=== PATIENT | female | born 2000 | race Caucasian/White ===

== ENCOUNTER 2021-04-11 08:35 | Inpatient (IN) | payer BC ==
[2021-04-11] MEDS ORDERED: Iopamidol-370 76% 500 ML 1 ML ONE (08:44)
[2021-04-11] MEDS ORDERED: Dexamethasone 10 MG/ML VIAL ONE (08:58)
[2021-04-11 09:24] LABS: Hemoglobin 12.8 g/dL (12.0-16.0); Mean Corpuscular HGB CONC 32.8 g/dL (32.0-36.0); Mean Corpuscular Volume 94.5 fL (78.0-98.0); Platelet Count 213 thou/uL (130-400); Red Blood Cell (RBC) Count 4.14 mill/uL (4.20-5.40); White Blood Cell (WBC) Count 3.5 thou/uL (4.8-10.8)
[2021-04-11] MEDS ORDERED: Ondansetron PF 4 MG/2 ML Vial ONE (09:30)
[2021-04-11 09:43] LABS: ALT (SGPT) 100 U/L (8-55); AST (SGOT) 85 U/L (5-34); Albumin 3.5 g/dL (3.5-5.0); Alkaline Phosphatase 152 U/L (40-110); Anion Gap 14 mmol/L (10-20); BUN (Urea Nitrogen) 8 mg/dL (7.0-18.7); Bilirubin, Total 2.4 mg/dL (0.2-1.2); Calc. Creatinine Clearance 0 mL/min (70-130); Calcium 8.2 mg/dL (7.8-10.44); Carbon Dioxide 21 mmol/L (22-29); Chloride 101 mmol/L (98-107); Globulin 3.7 g/dL (2.4-3.5); Glucose 128 mg/dL (70-105); Potassium 3.4 mmol/L (3.5-5.1); Protein, Total 7.2 g/dL (6.0-8.3); Sodium 133 mmol/L (136-145)
[2021-04-11 09:48] LABS: Band 10 % (5-11); Lymphocytes 35 % (21-51); MDiff Complete? YES; Monocytes 1 % (0-10); Neutrophil 35 % (42-75); RBC Morphology Normal; Reactive Lymphocytes 19 % (0-10)
[2021-04-11 10:23] LABS: BHCG - Serum Negative (NEGATIVE); Pregs Control Background? CLEAR/WHITE (CLR/WHITE); Pregs Control Bar Appear? YES (CONTROL BAR)
[2021-04-11] MEDS ORDERED: Acetaminophen 325 MG TAB PO PRN (11:41)
[2021-04-11] MEDS ORDERED: Senokot S 8.6-50 MG TAB PO PRN (11:41)
[2021-04-11] MEDS ORDERED: Calcium Carbonate 500 MG ChewTAB PO PRN (11:41)
[2021-04-11] MEDS ORDERED: Ondansetron ODT 4 MG TAB PO PRN (11:41)
[2021-04-11 13:06] LABS: SARS-CoV-2 NAA Rapid Test DETECTED (NotDetected)
[2021-04-11] MEDS ORDERED: Enoxaparin Sodium 40 MG/0.4 ML SYRINGE SC SCH (13:30)
[2021-04-11] MEDS ORDERED: Albuterol 200 PUFF (6.7GM INHALER) INH SCH ×3 (13:45→19:00)
[2021-04-11] MEDS ORDERED: Pharmacy to Dose REMDESIVIR IVPB PRN (13:49)
[2021-04-11] MEDS ORDERED: REMDESIVIR 200 MG in Sodium Chloride 0.9% 250 ML 210 ML IV SCH (14:00)
[2021-04-11] MEDS: Albuterol 200 PUFF (6.7GM INHALER) INH SCH (21:11)
[2021-04-11] MEDS: Enoxaparin Sodium 40 MG/0.4 ML SYRINGE SC SCH (21:16)
[2021-04-11] MEDS: Dexamethasone 4 mg/ml Vial SLOW IVP SCH (21:16)
[2021-04-12] MEDS: Albuterol 200 PUFF (6.7GM INHALER) INH SCH ×4 (01:39→17:31)
[2021-04-12 06:58] LABS: Hemoglobin 12.1 g/dL (12.0-16.0); Mean Corpuscular HGB CONC 33.1 g/dL (32.0-36.0); Mean Corpuscular Hemoglobin 31.2 pg (27.0-31.0); Mean Corpuscular Volume 94.2 fL (78.0-98.0); Mean Platelet Volume 6.9 fL (7.4-10.4); Platelet Count 206 thou/uL (130-400); RBC Distribution Width 11.8 % (11.5-14.5); Red Blood Cell (RBC) Count 3.88 mill/uL (4.20-5.40); White Blood Cell (WBC) Count 1.7 thou/uL (4.8-10.8)
[2021-04-12 07:14] LABS: ALT (SGPT) 96 U/L (8-55); AST (SGOT) 85 U/L (5-34); Albumin 3.2 g/dL (3.5-5.0); Alkaline Phosphatase 146 U/L (40-110); Anion Gap 13 mmol/L (10-20); BUN (Urea Nitrogen) 9 mg/dL (7.0-18.7); Bilirubin, Direct 1.2 mg/dL (0.1-0.3); Bilirubin, Total 1.6 mg/dL (0.2-1.2); Calc. Creatinine Clearance 214 mL/min (70-130); Calcium 8.2 mg/dL (7.8-10.44); Carbon Dioxide 21 mmol/L (22-29); Chloride 108 mmol/L (98-107); Glucose 126 mg/dL (70-105); Potassium 3.8 mmol/L (3.5-5.1); Protein, Total 6.8 g/dL (6.0-8.3); Sodium 138 mmol/L (136-145)
[2021-04-12 07:29] LABS: HBCM Index 0.11 S/CO (0-0.79); HBSAg Index 0.23 S/CO (0-0.99); Hep A IgM AB Non-Reactive (NonReactive); Hep A IgM S/CO 0.22 S/CO (0-0.79); Hep B Surf Ag Non-Reactive S/CO (NonReactive); Hep C IgG Ab Non-Reactive (NonReactive); Hep C Index 0.29 S/CO (0-0.79); Hepatitis B Core IgM Abs Non-Reactive (NonReactive)
[2021-04-12] MEDS: REMDESIVIR 100 MG in Sodium Chloride 0.9% 250 ML 230 ML IV SCH (07:52)
[2021-04-12] MEDS: Cholecalciferol 1,000 UNITS (25 MCG) TAB PO SCH (07:53)
[2021-04-12] MEDS: Enoxaparin Sodium 40 MG/0.4 ML SYRINGE SC SCH ×2 (07:53→20:10)
[2021-04-12] MEDS: Dexamethasone 4 mg/ml Vial SLOW IVP SCH ×2 (07:53→20:08)
[2021-04-12] MEDS: Zinc Sulfate 220 MG CAP PO SCH ×2 (07:53→08:25)
[2021-04-12] MEDS: Ascorbic Acid 500 mg Chewable Tablet PO SCH (07:53)
[2021-04-12 08:32] LABS: Band 14 % (5-11); Lymphocytes 50 % (21-51); MDiff Complete? YES; Monocytes 2 % (0-10); Neutrophil 32 % (42-75); Platelet Morphology Comment Appears Adequate; RBC Morphology Normal; Reactive Lymphocytes 2 % (0-10)
[2021-04-12] MEDS ORDERED: Enoxaparin Sodium 40 MG/0.4 ML SYRINGE SC SCH (09:00)
[2021-04-12] MEDS ORDERED: BARICITINIB 2 MG TAB PO SCH (09:00)
[2021-04-12] MEDS: Benzonatate 100 MG CAP PO PRN (20:10)
[2021-04-13] MEDS: Albuterol 200 PUFF (6.7GM INHALER) INH SCH ×4 (01:08→18:01)
[2021-04-13 07:18] LABS: Hemoglobin 12.2 g/dL (12.0-16.0); Mean Corpuscular HGB CONC 31.7 g/dL (32.0-36.0); Mean Corpuscular Hemoglobin 30.1 pg (27.0-31.0); Platelet Count 239 thou/uL (130-400); RBC Distribution Width 11.9 % (11.5-14.5); Red Blood Cell (RBC) Count 4.05 mill/uL (4.20-5.40); White Blood Cell (WBC) Count 2.8 thou/uL (4.8-10.8)
[2021-04-13 07:29] LABS: ALT (SGPT) 113 U/L (8-55); AST (SGOT) 107 U/L (5-34); Albumin 3.1 g/dL (3.5-5.0); Alkaline Phosphatase 137 U/L (40-110); Anion Gap 12 mmol/L (10-20); BUN (Urea Nitrogen) 12 mg/dL (7.0-18.7); Bilirubin, Direct 1.2 mg/dL (0.1-0.3); Bilirubin, Total 1.6 mg/dL (0.2-1.2); Calc. Creatinine Clearance 202 mL/min (70-130); Calcium 8.3 mg/dL (7.8-10.44); Carbon Dioxide 25 mmol/L (22-29); Chloride 107 mmol/L (98-107); Glucose 144 mg/dL (70-105); Potassium 4.1 mmol/L (3.5-5.1); Protein, Total 6.6 g/dL (6.0-8.3); Sodium 140 mmol/L (136-145)
[2021-04-13] MEDS: Dexamethasone 4 mg/ml Vial SLOW IVP SCH ×2 (07:47→20:17)
[2021-04-13] MEDS: Enoxaparin Sodium 40 MG/0.4 ML SYRINGE SC SCH ×2 (07:47→20:19)
[2021-04-13] MEDS: Ascorbic Acid 500 mg Chewable Tablet PO SCH (07:48)
[2021-04-13] MEDS: Benzonatate 100 MG CAP PO PRN ×3 (07:48→20:17)
[2021-04-13] MEDS: Cholecalciferol 1,000 UNITS (25 MCG) TAB PO SCH (07:48)
[2021-04-13] MEDS: Zinc Sulfate 220 MG CAP PO SCH (07:48)
[2021-04-13] MEDS: REMDESIVIR 100 MG in Sodium Chloride 0.9% 250 ML 230 ML IV SCH (09:44)
[2021-04-13 10:46] LABS: Band 12 % (5-11); Lymphocytes 27 % (21-51); MDiff Complete? YES; Monocytes 4 % (0-10); Neutrophil 53 % (42-75); RBC Morphology Normal; Reactive Lymphocytes 4 % (0-10)
[2021-04-13] MEDS: Guaifenesin DM 100-10/5 ML UDCUP PO PRN (13:19)
[2021-04-14] MEDS: Albuterol 200 PUFF (6.7GM INHALER) INH SCH ×4 (01:14→18:48)
[2021-04-14] MEDS: Guaifenesin DM 100-10/5 ML UDCUP PO PRN ×2 (03:11→08:48)
[2021-04-14 07:58] LABS: Hemoglobin 13.4 g/dL (12.0-16.0); Mean Corpuscular HGB CONC 32.2 g/dL (32.0-36.0); Mean Corpuscular Hemoglobin 30.4 pg (27.0-31.0); Mean Corpuscular Volume 94.3 fL (78.0-98.0); Mean Platelet Volume 6.9 fL (7.4-10.4); Platelet Count 257 thou/uL (130-400); RBC Distribution Width 11.9 % (11.5-14.5); Red Blood Cell (RBC) Count 4.41 mill/uL (4.20-5.40); White Blood Cell (WBC) Count 2.9 thou/uL (4.8-10.8)
[2021-04-14 07:59] LABS: ALT (SGPT) 134 U/L (8-55); AST (SGOT) 111 U/L (5-34); Albumin 3.3 g/dL (3.5-5.0); Alkaline Phosphatase 143 U/L (40-110); Anion Gap 12 mmol/L (10-20); BUN (Urea Nitrogen) 14 mg/dL (7.0-18.7); Bilirubin, Total 1.5 mg/dL (0.2-1.2); Calc. Creatinine Clearance 214 mL/min (70-130); Calcium 8.2 mg/dL (7.8-10.44); Carbon Dioxide 25 mmol/L (22-29); Chloride 108 mmol/L (98-107); Glucose 182 mg/dL (70-105); Protein, Total 6.9 g/dL (6.0-8.3); Sodium 141 mmol/L (136-145)
[2021-04-14 08:25] LABS: Lymphocytes 18 % (21-51); MDiff Complete? YES; Monocytes 2 % (0-10); Neutrophil 75 % (42-75); Platelet Morphology Comment Appears Adequate; Reactive Lymphocytes 5 % (0-10)
[2021-04-14] MEDS: REMDESIVIR 100 MG in Sodium Chloride 0.9% 250 ML 230 ML IV SCH (08:47)
[2021-04-14] MEDS: Dexamethasone 4 mg/ml Vial SLOW IVP SCH ×2 (08:48→19:26)
[2021-04-14] MEDS: Enoxaparin Sodium 40 MG/0.4 ML SYRINGE SC SCH ×2 (08:48→19:26)
[2021-04-14] MEDS: Cholecalciferol 1,000 UNITS (25 MCG) TAB PO SCH (08:48)
[2021-04-14] MEDS: Ascorbic Acid 500 mg Chewable Tablet PO SCH (08:49)
[2021-04-14] MEDS: Zinc Sulfate 220 MG CAP PO SCH (08:49)
[2021-04-14] MEDS: Benzonatate 100 MG CAP PO PRN ×2 (08:50→20:00)
[2021-04-14] MEDS: Mometasone 200 MCG/Formoterol 5 MCG 120 PUFF INHALER INH SCH ×2 (13:04→18:49)
[2021-04-14] MEDS: cefTRIAXone\\ROCEPHIN 1 GM in Sodium Chloride 0.9% 100 ML IVPB SCH (18:48)
[2021-04-14] MEDS: Azithromycin 500 MG in Sodium Chloride 0.9% 250 ML 250 ML IVPB SCH (20:19)
[2021-04-15] MEDS: Albuterol 200 PUFF (6.7GM INHALER) INH SCH (01:39)
[2021-04-15 03:42] LABS: #Lymphocytes 0.9 thou/uL (1.20-3.40); #Monocytes 0.3 thou/uL (0.11-0.59); #Neutrophils 5.7 thou/uL (1.40-6.50); %Basophils 0.2 % (0.0-1.0); %Eosinophils 0.1 % (0.0-10.0); %Lymphocytes 12.6 % (21.0-51.0); %Monocytes 3.8 % (0.0-10.0); %Neutrophils 83.3 % (42.0-75.0); Hemoglobin 12.8 g/dL (12.0-16.0); Mean Corpuscular HGB CONC 33.2 g/dL (32.0-36.0); Mean Corpuscular Hemoglobin 31.1 pg (27.0-31.0); Mean Corpuscular Volume 93.7 fL (78.0-98.0); Mean Platelet Volume 6.6 fL (7.4-10.4); Platelet Count 280 thou/uL (130-400); RBC Distribution Width 11.9 % (11.5-14.5); Red Blood Cell (RBC) Count 4.13 mill/uL (4.20-5.40); White Blood Cell (WBC) Count 6.8 thou/uL (4.8-10.8)
[2021-04-15 04:03] LABS: ALT (SGPT) 173 U/L (8-55); AST (SGOT) 117 U/L (5-34); Albumin 3.2 g/dL (3.5-5.0); Alkaline Phosphatase 128 U/L (40-110); Anion Gap 11 mmol/L (10-20); BUN (Urea Nitrogen) 11 mg/dL (7.0-18.7); Bilirubin, Total 1.3 mg/dL (0.2-1.2); Calc. Creatinine Clearance 218 mL/min (70-130); Calcium 8.3 mg/dL (7.8-10.44); Carbon Dioxide 25 mmol/L (22-29); Chloride 107 mmol/L (98-107); Glucose 188 mg/dL (70-105); Potassium 3.8 mmol/L (3.5-5.1); Protein, Total 6.5 g/dL (6.0-8.3); Sodium 139 mmol/L (136-145)
[2021-04-15 05:39] VITALS: BMI 36.0
[2021-04-15] MEDS: Cholecalciferol 1,000 UNITS (25 MCG) TAB PO SCH (08:14)
[2021-04-15] MEDS: Zinc Sulfate 220 MG CAP PO SCH (08:14)
[2021-04-15] MEDS: Ascorbic Acid 500 mg Chewable Tablet PO SCH (08:14)
[2021-04-15] MEDS: Enoxaparin Sodium 40 MG/0.4 ML SYRINGE SC SCH ×2 (08:15→20:10)
[2021-04-15] MEDS: Dexamethasone 4 mg/ml Vial SLOW IVP SCH ×2 (08:15→20:10)
[2021-04-15] MEDS: REMDESIVIR 100 MG in Sodium Chloride 0.9% 250 ML 230 ML IV SCH (08:18)
[2021-04-15] MEDS: Azithromycin 500 MG in Sodium Chloride 0.9% 250 ML 250 ML IVPB SCH (17:49)
[2021-04-15] MEDS: cefTRIAXone\\ROCEPHIN 1 GM in Sodium Chloride 0.9% 100 ML IVPB SCH (18:23)
[2021-04-16 03:56] LABS: #Lymphocytes 0.9 thou/uL (1.20-3.40); #Monocytes 0.2 thou/uL (0.11-0.59); #Neutrophils 3.2 thou/uL (1.40-6.50); %Basophils 0.2 % (0.0-1.0); %Eosinophils 0.3 % (0.0-10.0); %Lymphocytes 20.2 % (21.0-51.0); %Monocytes 4.5 % (0.0-10.0); %Neutrophils 74.8 % (42.0-75.0); Hemoglobin 12.6 g/dL (12.0-16.0); Mean Corpuscular HGB CONC 32.8 g/dL (32.0-36.0); Mean Corpuscular Hemoglobin 30.8 pg (27.0-31.0); Mean Corpuscular Volume 93.9 fL (78.0-98.0); Mean Platelet Volume 6.9 fL (7.4-10.4); Platelet Count 239 thou/uL (130-400); RBC Distribution Width 11.8 % (11.5-14.5); Red Blood Cell (RBC) Count 4.07 mill/uL (4.20-5.40); White Blood Cell (WBC) Count 4.2 thou/uL (4.8-10.8)
[2021-04-16 04:17] LABS: Anion Gap 9 mmol/L (10-20); BUN (Urea Nitrogen) 13 mg/dL (7.0-18.7); Calc. Creatinine Clearance 219 mL/min (70-130); Calcium 8.4 mg/dL (7.8-10.44); Carbon Dioxide 26 mmol/L (22-29); Chloride 106 mmol/L (98-107); Glucose 194 mg/dL (70-105); Sodium 137 mmol/L (136-145)
[2021-04-16] MEDS: Benzonatate 100 MG CAP PO PRN ×2 (06:09→20:41)
[2021-04-16] MEDS: Dexamethasone 4 mg/ml Vial SLOW IVP SCH ×2 (07:39→20:41)
[2021-04-16] MEDS: Ascorbic Acid 500 mg Chewable Tablet PO SCH (07:39)
[2021-04-16] MEDS: Enoxaparin Sodium 40 MG/0.4 ML SYRINGE SC SCH ×2 (07:39→20:43)
[2021-04-16] MEDS: Cholecalciferol 1,000 UNITS (25 MCG) TAB PO SCH (07:39)
[2021-04-16] MEDS: Zinc Sulfate 220 MG CAP PO SCH (07:40)
[2021-04-16] MEDS: Mometasone 200 MCG/Formoterol 5 MCG 120 PUFF INHALER INH SCH ×3 (10:47→19:30)
[2021-04-16] MEDS: Albuterol 200 PUFF (6.7GM INHALER) INH SCH ×4 (10:47→19:00)
[2021-04-16] MEDS: cefTRIAXone\\ROCEPHIN 1 GM in Sodium Chloride 0.9% 100 ML IVPB SCH (17:25)
[2021-04-16] MEDS: Azithromycin 500 MG in Sodium Chloride 0.9% 250 ML 250 ML IVPB SCH (17:45)
[2021-04-17] MEDS: Albuterol 200 PUFF (6.7GM INHALER) INH SCH ×5 (01:11→18:25)
[2021-04-17] MEDS: Mometasone 200 MCG/Formoterol 5 MCG 120 PUFF INHALER INH SCH ×2 (06:11→18:24)
[2021-04-17 06:34] LABS: ALT (SGPT) 86 U/L (8-55); AST (SGOT) 25 U/L (5-34); Albumin 3.2 g/dL (3.5-5.0); Alkaline Phosphatase 98 U/L (40-110); Anion Gap 12 mmol/L (10-20); BUN (Urea Nitrogen) 13 mg/dL (7.0-18.7); Bilirubin, Total 0.8 mg/dL (0.2-1.2); Calc. Creatinine Clearance 197 mL/min (70-130); Calcium 8.4 mg/dL (7.8-10.44); Carbon Dioxide 23 mmol/L (22-29); Chloride 108 mmol/L (98-107); Globulin 3.2 g/dL (2.4-3.5); Glucose 186 mg/dL (70-105); Protein, Total 6.4 g/dL (6.0-8.3); Sodium 139 mmol/L (136-145)
[2021-04-17] MEDS: Cholecalciferol 1,000 UNITS (25 MCG) TAB PO SCH (08:38)
[2021-04-17] MEDS: Ascorbic Acid 500 mg Chewable Tablet PO SCH (08:38)
[2021-04-17] MEDS: Zinc Sulfate 220 MG CAP PO SCH (08:38)
[2021-04-17] MEDS: Enoxaparin Sodium 40 MG/0.4 ML SYRINGE SC SCH ×2 (08:39→21:03)
[2021-04-17] MEDS: Dexamethasone 4 mg/ml Vial SLOW IVP SCH ×2 (08:39→21:02)
[2021-04-17] MEDS: Benzonatate 100 MG CAP PO PRN (21:03)
[2021-04-18] MEDS: Albuterol 200 PUFF (6.7GM INHALER) INH SCH ×4 (01:30→18:42)
[2021-04-18] MEDS: Mometasone 200 MCG/Formoterol 5 MCG 120 PUFF INHALER INH SCH ×2 (06:19→18:42)
[2021-04-18] MEDS: Cholecalciferol 1,000 UNITS (25 MCG) TAB PO SCH (09:06)
[2021-04-18] MEDS: Zinc Sulfate 220 MG CAP PO SCH (09:06)
[2021-04-18] MEDS: Ascorbic Acid 500 mg Chewable Tablet PO SCH (09:07)
[2021-04-18] MEDS: Dexamethasone 4 mg/ml Vial SLOW IVP SCH ×2 (09:07→20:24)
[2021-04-18] MEDS: Enoxaparin Sodium 40 MG/0.4 ML SYRINGE SC SCH ×2 (09:07→20:24)
[2021-04-19] MEDS: Albuterol 200 PUFF (6.7GM INHALER) INH SCH ×3 (00:48→13:07)
[2021-04-19] MEDS: Mometasone 200 MCG/Formoterol 5 MCG 120 PUFF INHALER INH SCH (06:45)
[2021-04-19] MEDS: Ascorbic Acid 500 mg Chewable Tablet PO SCH (09:04)
[2021-04-19] MEDS: Zinc Sulfate 220 MG CAP PO SCH (09:04)
[2021-04-19] MEDS: Cholecalciferol 1,000 UNITS (25 MCG) TAB PO SCH (09:04)
[2021-04-19] MEDS: Dexamethasone 4 mg/ml Vial SLOW IVP SCH (09:05)
[2021-04-19] MEDS: Enoxaparin Sodium 40 MG/0.4 ML SYRINGE SC SCH (09:05)
[2021-04-19 11:18] VITALS: TEMP 97.8
[2021-04-19 18:05] VITALS: BP 104/67
== END 2021-04-19 17:17 | disposition home or self-care (01) | DRG 871 ==
LOC: ERS 08:35 → T4-A 11:33 → CCU 04-14 21:11 → T4-B 04-16 18:26
PROVIDERS: ADMIT Internal Medicine; ATTEND Internal Medicine
PROC: 8E0ZXY6 Isolation (ICD-10-PCS; principal; 2021-04-11)
PROC: 3E0333Z Introduction of Anti-inflammatory into Peripheral Vein, Percutaneous Approach (ICD-10-PCS; 2021-04-11)
PROC: XW033E5 Introduction of Remdesivir Anti-infective into Peripheral Vein, Percutaneous Approach, New Technology Group 5 (ICD-10-PCS; 2021-04-11)
PROC: XW0DXM6 Introduction of Baricitinib into Mouth and Pharynx, External Approach, New Technology Group 6 (ICD-10-PCS; 2021-04-12)
DX: A41.89 Other specified sepsis (principal); U07.1 COVID-19; J12.82 Pneumonia due to coronavirus disease 2019; J96.01 Acute respiratory failure with hypoxia; E66.9 Obesity, unspecified; E28.2 Polycystic ovarian syndrome; R65.20 Severe sepsis without septic shock; Z68.36 Body mass index [BMI] 36.0-36.9, adult
CPT/HCPCS: 0240U; 36415; 71045; 71275; 80048; 80053; 80074; 80076; 82728; 83880; 84145; 84484; 84703; 85025; 85379; 86140; 93005; 94640; 94760; 96374; 96375; J0248; J0456; J0696; J1100; J1650; J2405; J3490; J7050; J7620; Q9967

== ENCOUNTER 2021-04-20 23:56 | Emergency (ER) | payer BC ==
[2021-04-21 00:51] LABS: #Lymphocytes 1.2 thou/uL (1.20-3.40); #Monocytes 0.5 thou/uL (0.11-0.59); #Neutrophils 5.3 thou/uL (1.40-6.50); %Eosinophils 0.3 % (0.0-10.0); %Monocytes 6.8 % (0.0-10.0); %Neutrophils 75.8 % (42.0-75.0); Hemoglobin 12.8 g/dL (12.0-16.0); Mean Corpuscular HGB CONC 33.3 g/dL (32.0-36.0); Mean Corpuscular Hemoglobin 31.1 pg (27.0-31.0); Mean Corpuscular Volume 93.2 fL (78.0-98.0); Mean Platelet Volume 7.1 fL (7.4-10.4); Platelet Count 302 thou/uL (130-400); RBC Distribution Width 11.7 % (11.5-14.5); Red Blood Cell (RBC) Count 4.13 mill/uL (4.20-5.40)
[2021-04-21 01:09] LABS: ALT (SGPT) 73 U/L (8-55); AST (SGOT) 16 U/L (5-34); Alkaline Phosphatase 70 U/L (40-110); Anion Gap 9 mmol/L (10-20); BUN (Urea Nitrogen) 13 mg/dL (7.0-18.7); Bilirubin, Total 0.7 mg/dL (0.2-1.2); Calc. Creatinine Clearance 0 mL/min (70-130); Calcium 8.2 mg/dL (7.8-10.44); Carbon Dioxide 24 mmol/L (22-29); Chloride 108 mmol/L (98-107); Globulin 2.8 g/dL (2.4-3.5); Glucose 219 mg/dL (70-105); Potassium 3.8 mmol/L (3.5-5.1); Protein, Total 5.8 g/dL (6.0-8.3); Sodium 137 mmol/L (136-145)
== END 2021-04-21 02:19 | disposition home or self-care (01) ==
LOC: ERS 23:56
DX: R00.1 Bradycardia, unspecified (principal)
CPT/HCPCS: 36415; 80053; 85025; 93005

== ENCOUNTER 2021-05-19 08:45 | Outpatient (CLI) | payer BC | END 2021-05-19 08:46 | disposition home or self-care (01) | LOC: RAD 08:45 | PROVIDERS: ATTEND Internal Medicine Critical Care Medicine | DX: R06.00 Dyspnea, unspecified (principal) | CPT/HCPCS: 71046 ==